=== PATIENT | female | born 1955 | race African-American/Black ===

== ENCOUNTER 2019-05-07 01:41 | Inpatient (IN) | payer OTHER ==
[~2019-05-07] VITALS: Ht 162.6 cm; Wt 95.0 kg
[~2019-05-07 01:41] MED LIST: ANAS1TAB7 MT; ASPI-986 MT; CARV25TA47 MT; ERGO400C MT; FURO-152 MT; LOSA25TA26 MT; MULT-1146 MT; SITA50TA3 MT; SPIR25TA6 MT; VALS160T28 MT
[2019-05-07] MEDS ORDERED: IPRATROPIUM BROMIDE (0.02%) 0.5MG/2.5ML NEB HHN STA (02:37)
[2019-05-07] MEDS ORDERED: METHYLPREDNISOLONE SOD SUCC 125 MG/2 ML VIAL IV STA (02:37)
[2019-05-07] MEDS ORDERED: MAGNESIUM 2 G PREMIX 50 ML IV ONE (02:45)
[2019-05-07] MEDS: ALBUTEROL (0.083%) 2.5MG/3ML NEB HHN SCH ×3 (02:52→03:53)
[2019-05-07 03:03] LABS: CHLORIDE 107 mEq/L (98-107)
[2019-05-07 03:05] LABS: INR 1.3; PARTIAL THROMBOPLASTIN TIME 27.6 sec (23.4-31.0); PROTHROMBIN TIME 12.7 sec (9.6-11.0)
[2019-05-07 03:07] LABS: BASOPHILS % 0.3 % (0.0-2.0); EOSINOPHILS % 3.2 % (0.0-5.0); HEMATOCRIT. 29.3 % (36.0-48.0); HEMOGLOBIN. 9.2 g/dL (12.0-16.0); LYMPHOCYTES % 10.5 % (20.0-50.0); MEAN CORPUSCULAR HEMOGLOBIN 28.9 pg (28.0-32.0); MEAN PLATELET VOLUME 9.6 fl (7.4-10.4); MONOCYTES % 9.6 % (2.0-8.0); NEUTROPHILS % 76.4 % (40.0-76.0); PLATELET 122 x1000/uL (130-400); RED BLOOD CELL COUNT 3.19 mill/uL (4.2-5.4); RED CELL DISTRIBUTION WIDTH 21.3 % (11.6-14.6)
[2019-05-07 03:09] LABS: ETHANOL BLOOD < 10 mg/dL
[2019-05-07 09:00] VITALS: BP 134/78
[2019-05-07] MEDS ORDERED: CLONIDINE 0.1MG TABLET PO PRN (09:00)
[2019-05-07] MEDS ORDERED: ENOXAPARIN 40MG/0.4ML SYR SUBCUT SCH (09:00)
[2019-05-07] MEDS ORDERED: DOCUSATE SODIUM 100MG CAPSULE PO PRN (09:00)
[2019-05-07] MEDS ORDERED: TRAMADOL 50MG TABLET PO PRN (09:00)
[2019-05-07] MEDS ORDERED: LORAZEPAM 0.5MG TABLET PO PRN (09:00)
[2019-05-07] MEDS ORDERED: ACETAMINOPHEN 325MG TABLET PO PRN (09:00)
[2019-05-07] MEDS ORDERED: MAGNESIUM/ALUMINUM HYDROXIDE/SIMETHICONE 30ML UDC PO PRN (09:00)
[2019-05-07] MEDS ORDERED: NITROGLYCERIN 0.4MG TABLET SL SL PRN (09:00)
[2019-05-07] MEDS ORDERED: GUAIFENESIN 200MG/10ML SUGAR FREE UDC PO PRN (09:00)
[2019-05-07] MEDS ORDERED: ONDANSETRON HCL 4MG/2ML INJ IV PRN (09:00)
[2019-05-07 10:00] VITALS: BP 134/78
[2019-05-07 10:26] LABS: BG BASE EXCESS 1.4 mmol/L (-2.0-2.0); BG CARBOXYHEMOGLOBIN 0.8 % (0.5-1.5); BG DEOXYHEMOGLOBIN 3.7 % (0.0-5.0); BG FRACTION INSPIRED OXYGEN 28; BG HCO3 ACT 29.2 mmol/L (22.0-26.0); BG METHEMOGLOBIN 0.4 % (0.0-1.5); BG OXYGEN SATURATION 96.3 % (92.0-98.5); BG OXYHEMOGLOBIN 95.1 % (94.0-97.0); BG PCO2 64.7 mmHg (35.0-45.0); BG PH 7.272 (7.350-7.450); BG PO2 99.3 mmHg (75.0-100.0); BG SAMPLE SITE RIGHT RADIAL; BG TOTAL HEMOGLOBIN 9.8 g/dL (12.0-18.0); BG VENT MODE NASAL CANNULA
[2019-05-07] MEDS: IPRATROPIUM/ALBUTEROL 0.5-3(2.5)MG/3ML NEB NEB PRN (10:33)
[2019-05-07] MEDS: FUROSEMIDE 40MG/4ML VIAL IVP SCH ×2 (11:51→21:04)
[2019-05-07 12:00] VITALS: BP 123/71
[2019-05-07] MEDS: ASPIRIN 325MG EC TABLET PO SCH (12:12)
[2019-05-07] MEDS: SPIRONOLACTONE 25MG TABLET PO SCH ×2 (12:12→21:04)
[2019-05-07] MEDS: FAMOTIDINE 20MG TABLET PO SCH (12:12)
[2019-05-07] MEDS: LOSARTAN POTASSIUM 25 MG TABLET PO SCH (12:13)
[2019-05-07] MEDS: GUAIFENESIN/DM 600MG/30MG ER TAB 12HR PO SCH ×2 (12:37→21:03)
[2019-05-07] MEDS ORDERED: DEXTROSE 50% WATER 50ML SYRINGE IV PRN (13:45)
[2019-05-07 16:00] VITALS: BP 129/81
[2019-05-07 16:36] LABS: CREATINE KINASE 69 IU/L (26-192)
[2019-05-07 16:37] LABS: CREATINE KINASE MB FRACTION 2.7 ng/mL (0.5-3.6)
[2019-05-07] MEDS: BLOOD SUGAR DIAGNOSTIC STRIP TEST SCH ×2 (17:20→21:04)
[2019-05-07] MEDS: CARVEDILOL 3.125 MG TABLET PO SCH (18:33)
[2019-05-07] MEDS: INSULIN LISPRO 100 UNITS/ML SUBCUT SCH ×2 (18:54→21:12)
[2019-05-07 20:00] VITALS: BP 105/62
[2019-05-07] MEDS ORDERED: ZOLPIDEM TARTRATE 5MG TABLET PO PRN (21:00)
[2019-05-07] MEDS: ENOXAPARIN 30MG/0.3ML SYR SUBCUT SCH (21:04)
[2019-05-08] VITALS: BP 102/48
[2019-05-08 01:07] LABS: CREATINE KINASE 63 IU/L (26-192)
[2019-05-08 01:08] LABS: CREATINE KINASE MB FRACTION 2.8 ng/mL (0.5-3.6)
[2019-05-08 04:00] VITALS: BP 114/69
[2019-05-08] MEDS: CARVEDILOL 3.125 MG TABLET PO SCH ×2 (05:37→18:55)
[2019-05-08] MEDS: BLOOD SUGAR DIAGNOSTIC STRIP TEST SCH ×4 (06:26→20:07)
[2019-05-08] MEDS: INSULIN LISPRO 100 UNITS/ML SUBCUT SCH ×4 (07:50→20:07)
[2019-05-08 08:00] VITALS: BP 111/36
[2019-05-08] MEDS: FAMOTIDINE 20MG TABLET PO SCH (09:15)
[2019-05-08] MEDS ORDERED: METOLAZONE 10MG TABLET PO SCH (09:15)
[2019-05-08] MEDS: SPIRONOLACTONE 25MG TABLET PO SCH ×2 (09:16→20:19)
[2019-05-08] MEDS: ENOXAPARIN 30MG/0.3ML SYR SUBCUT SCH ×2 (09:16→20:18)
[2019-05-08] MEDS: ASPIRIN 325MG EC TABLET PO SCH (09:16)
[2019-05-08] MEDS: GUAIFENESIN/DM 600MG/30MG ER TAB 12HR PO SCH ×2 (09:16→20:19)
[2019-05-08] MEDS: LOSARTAN POTASSIUM 25 MG TABLET PO SCH (09:16)
[2019-05-08] MEDS: FUROSEMIDE 40MG/4ML VIAL IVP SCH ×2 (09:16→20:19)
[2019-05-08 12:28] LABS: CHLORIDE 109 mEq/L (98-107)
[2019-05-08 20:07] VITALS: BP 123/59
[2019-05-09] VITALS: BP 99/61
[2019-05-09 03:50] VITALS: BP 111/47
[2019-05-09 05:05] LABS: BASOPHILS % 0.2 % (0.0-2.0); EOSINOPHILS % 1.7 % (0.0-5.0); HEMATOCRIT. 27.5 % (36.0-48.0); LYMPHOCYTES % 12.8 % (20.0-50.0); MEAN CORPUSCULAR HEMOGLOBIN 29.6 pg (28.0-32.0); MEAN CORPUSCULAR VOLUME 90.8 fL (81.0-99.0); MONOCYTES % 9.4 % (2.0-8.0); NEUTROPHILS % 75.9 % (40.0-76.0); PLATELET 158 x1000/uL (130-400); RED BLOOD CELL COUNT 3.03 mill/uL (4.2-5.4); RED CELL DISTRIBUTION WIDTH 21.1 % (11.6-14.6)
[2019-05-09 05:20] LABS: CHLORIDE 108 mEq/L (98-107)
[2019-05-09] MEDS: CARVEDILOL 3.125 MG TABLET PO SCH ×2 (05:24→18:00)
[2019-05-09 05:32] LABS: PHOSPHORUS 3.5 mg/dL (2.5-4.9)
[2019-05-09] MEDS: BLOOD SUGAR DIAGNOSTIC STRIP TEST SCH ×4 (06:21→21:19)
[2019-05-09] MEDS: INSULIN LISPRO 100 UNITS/ML SUBCUT SCH ×4 (07:50→21:19)
[2019-05-09 08:00] VITALS: BP 107/62
[2019-05-09] MEDS: LOSARTAN POTASSIUM 25 MG TABLET PO SCH (09:00)
[2019-05-09] MEDS: FUROSEMIDE 40MG/4ML VIAL IVP SCH ×2 (09:55→21:25)
[2019-05-09] MEDS: FAMOTIDINE 20MG TABLET PO SCH (09:56)
[2019-05-09] MEDS: SPIRONOLACTONE 25MG TABLET PO SCH ×2 (09:56→21:25)
[2019-05-09] MEDS: ENOXAPARIN 30MG/0.3ML SYR SUBCUT SCH ×2 (09:56→21:20)
[2019-05-09] MEDS: ASPIRIN 325MG EC TABLET PO SCH (09:56)
[2019-05-09] MEDS: GUAIFENESIN/DM 600MG/30MG ER TAB 12HR PO SCH ×2 (09:56→21:21)
[2019-05-09] MEDS ORDERED: LIDOCAINE HCL/EPINEPHRINE 1%-EPI 1:100,000 20 ML VIAL INFIL NR (13:30)
[2019-05-09 16:00] VITALS: BP 118/65
[2019-05-09 20:00] VITALS: BP 116/46
[2019-05-10 00:13] VITALS: BP 132/78
[2019-05-10 04:00] VITALS: BP 121/71
[2019-05-10] MEDS: BLOOD SUGAR DIAGNOSTIC STRIP TEST SCH ×4 (06:38→21:00)
[2019-05-10] MEDS: CARVEDILOL 3.125 MG TABLET PO SCH ×2 (06:45→16:59)
[2019-05-10] MEDS: ASPIRIN 325MG EC TABLET PO SCH (10:44)
[2019-05-10] MEDS: FUROSEMIDE 40MG/4ML VIAL IVP SCH ×2 (10:44→22:08)
[2019-05-10] MEDS: SPIRONOLACTONE 25MG TABLET PO SCH ×2 (10:51→22:08)
[2019-05-10] MEDS: FAMOTIDINE 20MG TABLET PO SCH (10:52)
[2019-05-10] MEDS: LOSARTAN POTASSIUM 25 MG TABLET PO SCH (10:53)
[2019-05-10] MEDS: ENOXAPARIN 30MG/0.3ML SYR SUBCUT SCH ×2 (10:54→22:09)
[2019-05-10] MEDS: GUAIFENESIN/DM 600MG/30MG ER TAB 12HR PO SCH ×2 (12:21→22:08)
[2019-05-10 19:08] VITALS: BP 124/56
[2019-05-10 20:40] VITALS: BP 130/63
[2019-05-10] MEDS: INSULIN LISPRO 100 UNITS/ML SUBCUT SCH (21:00)
[2019-05-10] MEDS: IPRATROPIUM/ALBUTEROL 0.5-3(2.5)MG/3ML NEB NEB PRN (22:08)
[2019-05-11] VITALS: BP 140/71
[2019-05-11 04:00] VITALS: BP 102/57
[2019-05-11] MEDS: CARVEDILOL 3.125 MG TABLET PO SCH ×2 (05:53→19:01)
[2019-05-11 06:41] LABS: BASOPHILS % 0.9 % (0.0-2.0); EOSINOPHILS % 3.6 % (0.0-5.0); HEMATOCRIT. 28.6 % (36.0-48.0); HEMOGLOBIN. 9.3 g/dL (12.0-16.0); LYMPHOCYTES % 19.8 % (20.0-50.0); MEAN CORPUSCULAR HEMOGLOBIN 28.8 pg (28.0-32.0); MEAN CORPUSCULAR VOLUME 88.9 fL (81.0-99.0); MEAN PLATELET VOLUME 8.5 fl (7.4-10.4); MONOCYTES % 11.8 % (2.0-8.0); NEUTROPHILS % 63.9 % (40.0-76.0); PLATELET 195 x1000/uL (130-400); RED BLOOD CELL COUNT 3.21 mill/uL (4.2-5.4); RED CELL DISTRIBUTION WIDTH 21.3 % (11.6-14.6)
[2019-05-11 06:51] LABS: CHLORIDE 103 mEq/L (98-107)
[2019-05-11] MEDS: BLOOD SUGAR DIAGNOSTIC STRIP TEST SCH ×3 (06:54→18:05)
[2019-05-11 06:57] LABS: PHOSPHORUS 3.3 mg/dL (2.5-4.9)
[2019-05-11] MEDS: INSULIN LISPRO 100 UNITS/ML SUBCUT SCH ×3 (07:46→17:50)
[2019-05-11 08:00] VITALS: BP 126/55
[2019-05-11] MEDS: FUROSEMIDE 40MG/4ML VIAL IVP SCH (09:00)
[2019-05-11] MEDS: LOSARTAN POTASSIUM 25 MG TABLET PO SCH (09:06)
[2019-05-11] MEDS: GUAIFENESIN/DM 600MG/30MG ER TAB 12HR PO SCH (09:07)
[2019-05-11] MEDS: FAMOTIDINE 20MG TABLET PO SCH (09:07)
[2019-05-11] MEDS: ASPIRIN 325MG EC TABLET PO SCH (09:07)
[2019-05-11] MEDS: SPIRONOLACTONE 25MG TABLET PO SCH (09:07)
[2019-05-11] MEDS: ENOXAPARIN 30MG/0.3ML SYR SUBCUT SCH (09:08)
[2019-05-11 12:00] VITALS: BP 104/48
[2019-05-11 16:00] VITALS: BP 130/46
[2019-05-11 18:12] VITALS: BP 130/46
== END 2019-05-11 19:35 | DRG 981 ==
LOC: ER 01:41 → 6WST 05:46 → EDBEDREQ 05:49 → EDBEDREQTM 05:49 → ENRESERV 08:13 → SUPCPDRO 08:59
PROVIDERS: ADMIT Internal Medicine; ATTEND Internal Medicine
PROC: 0KBT0ZZ Excision of Left Lower Leg Muscle, Open Approach (ICD-10-PCS; principal; 2019-05-09)
DX: J96.00 Acute respiratory failure, unspecified whether with hypoxia or hypercapnia (principal); L89.223 Pressure ulcer of left hip, stage 3; I50.43 Acute on chronic combined systolic (congestive) and diastolic (congestive) heart failure; L89.213 Pressure ulcer of right hip, stage 3; E44.1 Mild protein-calorie malnutrition; L97.929 Non-pressure chronic ulcer of unspecified part of left lower leg with unspecified severity; I13.0 Hypertensive heart and chronic kidney disease with heart failure and stage 1 through stage 4 chronic kidney disease, or unspecified chronic kidney disease; I42.9 Cardiomyopathy, unspecified; L97.829 Non-pressure chronic ulcer of other part of left lower leg with unspecified severity; J44.1 Chronic obstructive pulmonary disease with (acute) exacerbation; D63.8 Anemia in other chronic diseases classified elsewhere; I83.029 Varicose veins of left lower extremity with ulcer of unspecified site; E66.01 Morbid (severe) obesity due to excess calories; E11.22 Type 2 diabetes mellitus with diabetic chronic kidney disease; R26.89 Other abnormalities of gait and mobility; I87.2 Venous insufficiency (chronic) (peripheral); I83.028 Varicose veins of left lower extremity with ulcer other part of lower leg; I95.9 Hypotension, unspecified; R29.6 Repeated falls; N18.9 Chronic kidney disease, unspecified; Z68.35 Body mass index [BMI] 35.0-35.9, adult; Z95.0 Presence of cardiac pacemaker; Z88.0 Allergy status to penicillin; Z85.3 Personal history of malignant neoplasm of breast; Z90.12 Acquired absence of left breast and nipple; Z91.81 History of falling; Z83.3 Family history of diabetes mellitus; Z79.899 Other long term (current) drug therapy; Z79.82 Long term (current) use of aspirin; Z71.3 Dietary counseling and surveillance
CPT/HCPCS: 36415; 36600; 71045; 80053; 80061; 80320; 82375; 82550; 82553; 82805; 82962; 83036; 83735; 83880; 84100; 84484; 85025; 93005; 93970; 94640; 97162; 97166; 99285; J1650; J1815; J1940; J2930; J3475; J3490; G0480